=== PATIENT | male | born 2000 | race Caucasian/White ===

== ENCOUNTER 2021-10-05 13:16 | Emergency (ER) | payer OTHER ==
[~2021-10-05 13:16] MED LIST: LODINE CAP 300300 MG PO; SILVADENE CREAM20 GM TOP; ZOFRAN ODT 4 MG4 MG PO; ZOFRAN ODT 4 MG4 MG SL
[2021-10-05] MEDS ORDERED: DOXYCYCLINE HY100 MG PO (14:39)
[2021-10-05] MEDS ORDERED: METRONIDAZOLE500 MG PO (14:39)
[2021-10-05] MEDS ORDERED: BACTROBAN OINT22 GM EXT (14:41)
== END 2021-10-05 14:51 | disposition home or self-care (01) ==
LOC: ER1 13:16
DX: S01.21XA Laceration without foreign body of nose, initial encounter (principal); Z23 Encounter for immunization; W22.8XXA Striking against or struck by other objects, initial encounter
CPT/HCPCS: 12011; 70160; 90471; 90715; 99283

== ENCOUNTER 2022-03-02 10:57 | Emergency (ER) | payer OTHER ==
[~2022-03-02 10:57] MED LIST changes: +BACTROBAN OINT22 GM EXT; +DOXYCYCLINE HY100 MG PO; +METRONIDAZOLE500 MG PO
[2022-03-02] MEDS ORDERED: DOXYCYCLINE HY100 M2 PO (11:41)
== END 2022-03-02 11:48 | disposition home or self-care (01) ==
LOC: ER1 10:57
DX: L72.9 Follicular cyst of the skin and subcutaneous tissue, unspecified (principal); F17.290 Nicotine dependence, other tobacco product, uncomplicated; Z88.1 Allergy status to other antibiotic agents
CPT/HCPCS: 99282

== ENCOUNTER 2022-04-27 03:10 | Emergency (ER) | payer OTHER ==
[~2022-04-27 03:10] MED LIST changes: +DOXYCYCLINE HY100 M2 PO
== END 2022-04-27 05:44 | disposition home or self-care (01) ==
LOC: ER1 03:10
DX: S90.211A Contusion of right great toe with damage to nail, initial encounter (principal); Z90.89 Acquired absence of other organs; Z88.1 Allergy status to other antibiotic agents; R40.2410 Glasgow coma scale score 13-15, unspecified time; W20.8XXA Other cause of strike by thrown, projected or falling object, initial encounter
CPT/HCPCS: 73630; 90471; 90715; 99283